=== PATIENT | male | born 1970 | race Caucasian/White ===

== ENCOUNTER 2019-04-09 16:01 | Emergency (ER) | payer OTHER ==
[~2019-04-09] VITALS: Ht 185.4 cm; Wt 81.7 kg
[2019-04-09] MEDS ORDERED: PROVIGIL 200 M200 MG PO (16:11)
[2019-04-09] MEDS ORDERED: KEFLEX500 M1 PO (16:14)
[2019-04-09 16:50] VITALS: BP 129/77
== END 2019-04-09 16:52 | disposition home or self-care (01) ==
LOC: M.ERS 16:01
DX: S61.211A Laceration without foreign body of left index finger without damage to nail, initial encounter (principal); W26.0XXA Contact with knife, initial encounter; Y93.89 Activity, other specified; Y92.89 Other specified places as the place of occurrence of the external cause; Y99.8 Other external cause status